=== PATIENT | female | born 1995 | race Caucasian/White ===

== ENCOUNTER 2016-04-28 22:56 | Emergency (ER) | payer OTHER ==
--- NOTE | ~2016-04-28 | CR229 ---
[facility] A Service of [facility] & [facility] RADIOLOGY TEXT RESULTS PATIENT: LISSET CELAYA LOCATION: [facility] : [birth year] UNIT #: [id number] AGE: [address]: Sarah, ER Doctor SEX: F ORDER DR: [id number] [facility] [address] [place], [place] [address] [id number] E MR#: [id number] Acc #: [id number] NAME: LISSET CELAYA : 1995 SEX: F STUDY DATE/TIME: 04/28/2016 23:15 UNIT: [facility] ROOM: STUDY DESCRIPTION: CR Shoulder Min 2 View Lt Referring Physician: Neo Garcia M.D. Ordering Physician: Balwinder Diaz Aprn Primary Care Physician: No Primary Care Physician MEDICAL IMAGING REPORT This report is preliminary unless electronic signature is present EXAM Left shoulder, 04/28. INDICATION Shoulder pain with numbness and tingling that started yesterday. No recent trauma. FINDINGS 3 views of the left shoulder were obtained. There is an old midshaft clavicle fracture which is healed. No acute fracture is seen. There is no AC joint separation and there is no glenohumeral dislocation. IMPRESSION Old healed midshaft clavicle fracture, otherwise normal left shoulder. Dictated by... Shaun Patel Jr., M.D. THIS IS AN ELECTRONICALLY VERIFIED REPORT Shaun Patel Jr., M.D. at 04/29/2016 2:24 PM ADA/mariah TD: 04/29/2016 10:36 JOB #: [id number] MEDICAL IMAGING REPORT COPY
--- NOTE | ~2016-04-28 | CR77 ---
[facility] A Service of [facility] & [facility] RADIOLOGY TEXT RESULTS PATIENT: LISSET CELAYA LOCATION: [facility] : 95 UNIT #: [id number] AGE: [address]: JONAS Smith Doctor SEX: F ORDER DR: [id number] [facility] [address] [place], [place] [address] [id number] E MR#: [id number] Acc #: [id number] NAME: LISSET CELAYA : 1995 SEX: F STUDY DATE/TIME: 04/28/2016 23:10 UNIT: [facility] ROOM: STUDY DESCRIPTION: CR Clavicle Comp Lt Attending Physician: Er Doctor Sarah Ordering Physician: Balwinder Diaz Aprn Primary Care Physician: No Primary Care Physician MEDICAL IMAGING REPORT This report is preliminary unless electronic signature is present EXAM Left clavicle, 04/28. INDICATIONS Pain, numbness, and tingling in the shoulder and clavicle since yesterday. No recent trauma. FINDINGS 2 views of the clavicles are compared with 08/29/2009. There is an old healed midshaft left clavicle fracture. The right clavicle is normal. There is no evidence for AC joint separation on either side. IMPRESSION Old healed left mid clavicle fracture. Otherwise, negative views of both clavicles. Dictated by... Shaun Patel Jr., M.D. THIS IS AN ELECTRONICALLY VERIFIED REPORT Shaun Patel Jr., M.D. at 04/29/2016 2:24 PM ADA/coy TD: 04/29/2016 10:36 JOB #: [id number] MEDICAL IMAGING REPORT COPY
== END 2016-04-28 22:59 | disposition left against medical advice (07) ==
LOC: CED 22:56
DX: Z53.21 Procedure and treatment not carried out due to patient leaving prior to being seen by health care provider (principal)
CPT/HCPCS: 73000; 73030